=== PATIENT | male | born 1935 | race Caucasian/White ===

== ENCOUNTER 2021-07-13 07:53 | Outpatient (CLI) | payer MEDICARE | END 2021-07-13 07:54 | disposition home or self-care (01) | LOC: CT 07:53 | PROVIDERS: ATTEND Specialist | DX: S22.000A Wedge compression fracture of unspecified thoracic vertebra, initial encounter for closed fracture (principal) | CPT/HCPCS: 72128 ==

== ENCOUNTER 2021-07-20 12:48 | Inpatient (IN) | payer MEDICARE ==
[2021-07-20 13:58] LABS: #Eosinphils 0.2 thou/uL (0.0-0.7); #Monocytes 0.8 thou/uL (0.11-0.59); #Neutrophils 6.3 thou/uL (1.40-6.50); %Basophils 0.4 % (0.0-1.0); %Eosinophils 2.1 % (0.0-10.0); %Lymphocytes 12.3 % (21.0-51.0); %Monocytes 9.4 % (0.0-10.0); %Neutrophils 75.8 % (42.0-75.0); Hemoglobin 13.7 g/dL (14.0-18.0); Mean Corpuscular HGB CONC 31.9 g/dL (32.0-36.0); Mean Corpuscular Hemoglobin 36.4 pg (27.0-31.0); Platelet Count 157 thou/uL (130-400); RBC Distribution Width 13.7 % (11.5-14.5); Red Blood Cell (RBC) Count 3.76 mill/uL (4.70-6.10); White Blood Cell (WBC) Count 8.3 thou/uL (4.8-10.8)
[2021-07-20 14:29] LABS: ALT (SGPT) 21 U/L (8-55); AST (SGOT) 46 U/L (5-34); Albumin 4.1 g/dL (3.4-4.8); Alkaline Phosphatase 107 U/L (40-110); Anion Gap 21 mmol/L (10-20); BUN (Urea Nitrogen) 68 mg/dL (8.4-25.7); Bilirubin, Total 1.6 mg/dL (0.2-1.2); Calc. Creatinine Clearance 0 mL/min (70-130); Calcium 8.8 mg/dL (7.8-10.44); Carbon Dioxide 24 mmol/L (23-31); Chloride 98 mmol/L (98-107); Globulin 3.4 g/dL (2.4-3.5); Glucose 226 mg/dL (83-110); Potassium 4.8 mmol/L (3.5-5.1); Protein, Total 7.5 g/dL (5.8-8.1); Sodium 138 mmol/L (136-145)
[2021-07-20 14:45] LABS: CKMB 1.9 ng/mL (0-6.6)
[2021-07-20] MEDS ORDERED: Aspirin Chewable 81 MG TAB ONE (15:18)
[2021-07-20] MEDS ORDERED: Furosemide 20 MG/2 ML VIAL ONE (15:18)
[2021-07-20] MEDS ORDERED: Ondansetron ODT 4 MG TAB PO PRN (16:38)
[2021-07-20] MEDS ORDERED: HumaLOG 300 UNITS/3 ML VIAL SC PRN (17:22)
[2021-07-20] MEDS ORDERED: Dextrose 50% Abboject 50 ML SYRINGE SLOW IVP PRN (17:22)
[2021-07-20] MEDS ORDERED: Dextrose 5% in Water 1,000 ML IV PRN (17:22)
[2021-07-20 17:34] LABS: Magnesium 2.4 mg/dL (1.6-2.6); Phosphorus 4.4 mg/dL (2.3-4.7)
[2021-07-20] MEDS ORDERED: Furosemide 40 MG/4 ML VIAL SLOW IVP SCH (17:45)
[2021-07-20] MEDS ORDERED: Carvedilol 6.25 MG TAB PO SCH (18:30)
[2021-07-20 19:27] LABS: Hemoglobin A1c 8.7 % (4.0-6.0)
[2021-07-20 19:29] LABS: Troponin I 0.052 ng/mL (< 0.028)
[2021-07-20] MEDS: Apixaban 2.5 MG TAB PO SCH (20:49)
[2021-07-20] MEDS: Rosuvastatin 20 MG TAB PO SCH (20:49)
[2021-07-20] MEDS: Insulin Regular 300 UNITS/3 ML VIAL SC SCH (20:53)
[2021-07-20 22:44] LABS: SARS-CoV-2 PCR by NAA Not Detected (NotDetected)
[2021-07-20] MEDS: Acetaminophen 325 MG TAB PO PRN (23:16)
[2021-07-21 05:13] LABS: #Eosinphils 0.2 thou/uL (0.0-0.7); #Lymphocytes 1.1 thou/uL (1.20-3.40); #Monocytes 0.8 thou/uL (0.11-0.59); #Neutrophils 4.9 thou/uL (1.40-6.50); %Basophils 0.7 % (0.0-1.0); %Eosinophils 2.8 % (0.0-10.0); %Lymphocytes 16.1 % (21.0-51.0); %Monocytes 10.7 % (0.0-10.0); %Neutrophils 69.7 % (42.0-75.0); Hemoglobin 13.9 g/dL (14.0-18.0); Mean Corpuscular Hemoglobin 36.6 pg (27.0-31.0); Mean Platelet Volume 8.3 fL (7.4-10.4); Platelet Count 141 thou/uL (130-400); RBC Distribution Width 13.6 % (11.5-14.5)
[2021-07-21 05:33] LABS: ALT (SGPT) 15 U/L (8-55); AST (SGOT) 20 U/L (5-34); Alkaline Phosphatase 104 U/L (40-110); Anion Gap 17 mmol/L (10-20); BUN (Urea Nitrogen) 67 mg/dL (8.4-25.7); Bilirubin, Total 1.6 mg/dL (0.2-1.2); Calc. Creatinine Clearance 37 mL/min (70-130); Calcium 8.8 mg/dL (7.8-10.44); Carbon Dioxide 30 mmol/L (23-31); Chloride 100 mmol/L (98-107); Globulin 2.8 g/dL (2.4-3.5); Glucose 121 mg/dL (83-110); Potassium 3.8 mmol/L (3.5-5.1); Protein, Total 6.8 g/dL (5.8-8.1); Sodium 143 mmol/L (136-145)
[2021-07-21] MEDS: Levothyroxine Sodium 75 MCG TAB PO SCH (05:55)
[2021-07-21] MEDS: Furosemide 40 MG/4 ML VIAL SLOW IVP SCH ×2 (05:56→10:30)
[2021-07-21 08:49] LABS: Magnesium 2.4 mg/dL (1.6-2.6); Phosphorus 4.1 mg/dL (2.3-4.7)
[2021-07-21] MEDS: LEVOMEFOLATE PO SCH ×2 (10:27→20:42)
[2021-07-21] MEDS: B12 PO SCH ×2 (10:27→20:42)
[2021-07-21] MEDS: ALGAL OIL PO SCH ×2 (10:27→20:42)
[2021-07-21] MEDS: B6 PO SCH ×2 (10:27→20:42)
[2021-07-21] MEDS: Polyethylene Glycol 3350 17 GM Packet PO SCH (10:27)
[2021-07-21] MEDS: Famotidine 20 MG TAB PO SCH (10:28)
[2021-07-21] MEDS: Apixaban 2.5 MG TAB PO SCH ×2 (10:28→20:41)
[2021-07-21] MEDS: Docusate 100 MG CAP PO SCH ×2 (10:28→20:41)
[2021-07-21] MEDS: Tamsulosin HCl 0.4 MG CAP PO SCH (10:28)
[2021-07-21] MEDS: Aspirin 81 mg Enteric Coated Tablet PO SCH (10:29)
[2021-07-21] MEDS: Folic Acid 1 MG TAB PO SCH (10:29)
[2021-07-21] MEDS: Finasteride 5 MG TAB PO SCH (10:29)
[2021-07-21] MEDS: Magnesium Oxide 400 MG TAB PO SCH (10:29)
[2021-07-21] MEDS: Insulin Regular 300 UNITS/3 ML VIAL SC SCH ×2 (10:31→20:42)
[2021-07-21] MEDS: Carvedilol 6.25 MG TAB PO SCH ×2 (11:37→16:57)
[2021-07-21] MEDS: Fluticasone Propionate Nasal Spray 16 gm Bottle NASAL SCH (11:38)
[2021-07-21] MEDS: HumaLOG 300 UNITS/3 ML VIAL SC PRN (13:11)
[2021-07-21] MEDS: Rosuvastatin 20 MG TAB PO SCH (20:41)
[2021-07-22] MEDS: Furosemide 40 MG/4 ML VIAL SLOW IVP SCH ×2 (05:19→13:15)
[2021-07-22] MEDS: Levothyroxine Sodium 75 MCG TAB PO SCH (05:19)
[2021-07-22 05:31] LABS: #Eosinphils 0.2 thou/uL (0.0-0.7); #Monocytes 0.7 thou/uL (0.11-0.59); #Neutrophils 5.4 thou/uL (1.40-6.50); %Basophils 0.7 % (0.0-1.0); %Eosinophils 2.9 % (0.0-10.0); %Lymphocytes 14.1 % (21.0-51.0); %Monocytes 9.5 % (0.0-10.0); %Neutrophils 72.8 % (42.0-75.0); Hemoglobin 13.1 g/dL (14.0-18.0); Mean Corpuscular HGB CONC 32.6 g/dL (32.0-36.0); Mean Corpuscular Hemoglobin 37.2 pg (27.0-31.0); Mean Platelet Volume 8.2 fL (7.4-10.4); Platelet Count 138 thou/uL (130-400); RBC Distribution Width 13.6 % (11.5-14.5); Red Blood Cell (RBC) Count 3.53 mill/uL (4.70-6.10); White Blood Cell (WBC) Count 7.4 thou/uL (4.8-10.8)
[2021-07-22 05:58] LABS: ALT (SGPT) 15 U/L (8-55); AST (SGOT) 19 U/L (5-34); Albumin 3.8 g/dL (3.4-4.8); Alkaline Phosphatase 102 U/L (40-110); Anion Gap 17 mmol/L (10-20); BUN (Urea Nitrogen) 59 mg/dL (8.4-25.7); Calc. Creatinine Clearance 40 mL/min (70-130); Calcium 8.6 mg/dL (7.8-10.44); Carbon Dioxide 32 mmol/L (23-31); Chloride 100 mmol/L (98-107); Globulin 2.7 g/dL (2.4-3.5); Glucose 118 mg/dL (83-110); Magnesium 2.2 mg/dL (1.6-2.6); Phosphorus 3.7 mg/dL (2.3-4.7); Potassium 3.7 mmol/L (3.5-5.1); Protein, Total 6.5 g/dL (5.8-8.1); Sodium 145 mmol/L (136-145)
[2021-07-22] MEDS ORDERED: guaiFENesin ER 600 MG TAB PO SCH (09:15)
[2021-07-22] MEDS: B12 PO SCH ×2 (09:34→22:03)
[2021-07-22] MEDS: ALGAL OIL PO SCH ×2 (09:34→22:03)
[2021-07-22] MEDS: B6 PO SCH ×2 (09:34→22:03)
[2021-07-22] MEDS: LEVOMEFOLATE PO SCH ×2 (09:34→22:03)
[2021-07-22] MEDS: Polyethylene Glycol 3350 17 GM Packet PO SCH (09:35)
[2021-07-22] MEDS: Fluticasone Propionate Nasal Spray 16 gm Bottle NASAL SCH (09:35)
[2021-07-22] MEDS: Insulin Regular 300 UNITS/3 ML VIAL SC SCH ×2 (09:37→22:04)
[2021-07-22] MEDS: Folic Acid 1 MG TAB PO SCH (09:38)
[2021-07-22] MEDS: Carvedilol 6.25 MG TAB PO SCH ×2 (09:38→17:02)
[2021-07-22] MEDS: Docusate 100 MG CAP PO SCH ×2 (09:38→22:03)
[2021-07-22] MEDS: Finasteride 5 MG TAB PO SCH (09:38)
[2021-07-22] MEDS: Magnesium Oxide 400 MG TAB PO SCH (09:39)
[2021-07-22] MEDS: Apixaban 2.5 MG TAB PO SCH ×2 (09:39→22:03)
[2021-07-22] MEDS: Famotidine 20 MG TAB PO SCH (09:39)
[2021-07-22] MEDS: Tamsulosin HCl 0.4 MG CAP PO SCH (09:39)
[2021-07-22] MEDS: Aspirin 81 mg Enteric Coated Tablet PO SCH (09:39)
[2021-07-22] MEDS: Acetaminophen 325 MG TAB PO PRN ×3 (10:00→23:06)
[2021-07-22] MEDS: HumaLOG 300 UNITS/3 ML VIAL SC PRN (13:14)
[2021-07-22] MEDS: guaiFENesin ER 600 MG TAB PO SCH (22:03)
[2021-07-22] MEDS: Rosuvastatin 20 MG TAB PO SCH (22:03)
[2021-07-23] MEDS: hydrOXYzine 25 MG TAB PO PRN (01:47)
[2021-07-23] MEDS: Levothyroxine Sodium 75 MCG TAB PO SCH (05:56)
[2021-07-23] MEDS: Furosemide 40 MG/4 ML VIAL SLOW IVP SCH (05:56)
[2021-07-23 06:01] LABS: Anion Gap 19 mmol/L (10-20); BUN (Urea Nitrogen) 60 mg/dL (8.4-25.7); Calc. Creatinine Clearance 39 mL/min (70-130); Calcium 8.7 mg/dL (7.8-10.44); Carbon Dioxide 30 mmol/L (23-31); Chloride 100 mmol/L (98-107); Glucose 141 mg/dL (83-110); Potassium 4.2 mmol/L (3.5-5.1); Sodium 145 mmol/L (136-145)
[2021-07-23] MEDS: Insulin Regular 300 UNITS/3 ML VIAL SC SCH ×2 (07:42→21:07)
[2021-07-23] MEDS: Acetaminophen 325 MG TAB PO PRN (07:43)
[2021-07-23] MEDS: Carvedilol 6.25 MG TAB PO SCH ×2 (09:23→17:48)
[2021-07-23] MEDS: B6 PO SCH ×2 (09:23→21:04)
[2021-07-23] MEDS: LEVOMEFOLATE PO SCH ×2 (09:23→21:04)
[2021-07-23] MEDS: Fluticasone Propionate Nasal Spray 16 gm Bottle NASAL SCH (09:23)
[2021-07-23] MEDS: ALGAL OIL PO SCH ×2 (09:23→21:04)
[2021-07-23] MEDS: B12 PO SCH ×2 (09:23→21:04)
[2021-07-23] MEDS: Folic Acid 1 MG TAB PO SCH (09:24)
[2021-07-23] MEDS: Aspirin 81 mg Enteric Coated Tablet PO SCH (09:24)
[2021-07-23] MEDS: Tamsulosin HCl 0.4 MG CAP PO SCH (09:24)
[2021-07-23] MEDS: Finasteride 5 MG TAB PO SCH (09:24)
[2021-07-23] MEDS: Empagliflozin 10 MG TAB PO SCH (09:24)
[2021-07-23] MEDS: Magnesium Oxide 400 MG TAB PO SCH (09:24)
[2021-07-23] MEDS: guaiFENesin ER 600 MG TAB PO SCH ×2 (09:24→21:00)
[2021-07-23] MEDS: Apixaban 2.5 MG TAB PO SCH ×2 (09:24→21:01)
[2021-07-23] MEDS: Docusate 100 MG CAP PO SCH ×2 (09:24→21:01)
[2021-07-23] MEDS: Bumetanide 1 MG TAB PO SCH ×2 (09:25→21:01)
[2021-07-23] MEDS: Polyethylene Glycol 3350 17 GM Packet PO SCH (09:26)
[2021-07-23] MEDS: Famotidine 20 MG TAB PO SCH (09:26)
[2021-07-23] MEDS ORDERED: Furosemide 20 MG/2 ML VIAL SLOW IVP SCH (12:30)
[2021-07-23] MEDS: Albuterol Sulfate 2.5 mg/3 ml Neb NEB PRN (14:03)
[2021-07-23] MEDS: Rosuvastatin 20 MG TAB PO SCH (21:01)
[2021-07-24 05:41] LABS: Anion Gap 16 mmol/L (10-20); BUN (Urea Nitrogen) 53 mg/dL (8.4-25.7); Calc. Creatinine Clearance 42 mL/min (70-130); Calcium 8.7 mg/dL (7.8-10.44); Carbon Dioxide 32 mmol/L (23-31); Chloride 103 mmol/L (98-107); Glucose 70 mg/dL (83-110); Potassium 3.5 mmol/L (3.5-5.1); Sodium 147 mmol/L (136-145)
[2021-07-24 06:44] VITALS: BMI 34.4
[2021-07-24] MEDS: Levothyroxine Sodium 75 MCG TAB PO SCH (06:50)
[2021-07-24] MEDS: Insulin Regular 300 UNITS/3 ML VIAL SC SCH ×2 (08:42→22:11)
[2021-07-24] MEDS: Fluticasone Propionate Nasal Spray 16 gm Bottle NASAL SCH (08:42)
[2021-07-24] MEDS: Polyethylene Glycol 3350 17 GM Packet PO SCH (08:43)
[2021-07-24] MEDS: Finasteride 5 MG TAB PO SCH (08:44)
[2021-07-24] MEDS: Empagliflozin 10 MG TAB PO SCH (08:44)
[2021-07-24] MEDS: Famotidine 20 MG TAB PO SCH (08:44)
[2021-07-24] MEDS: Aspirin 81 mg Enteric Coated Tablet PO SCH (08:44)
[2021-07-24] MEDS: Magnesium Oxide 400 MG TAB PO SCH (08:44)
[2021-07-24] MEDS: Carvedilol 6.25 MG TAB PO SCH ×2 (08:44→17:38)
[2021-07-24] MEDS: guaiFENesin ER 600 MG TAB PO SCH ×2 (08:44→21:30)
[2021-07-24] MEDS: Folic Acid 1 MG TAB PO SCH (08:44)
[2021-07-24] MEDS: Tamsulosin HCl 0.4 MG CAP PO SCH (08:44)
[2021-07-24] MEDS: Docusate 100 MG CAP PO SCH ×2 (08:45→21:30)
[2021-07-24] MEDS: Apixaban 2.5 MG TAB PO SCH ×2 (08:45→21:30)
[2021-07-24] MEDS: Bumetanide 1 MG TAB PO SCH ×2 (08:45→21:32)
[2021-07-24] MEDS: B12 PO SCH ×2 (08:58→21:33)
[2021-07-24] MEDS: B6 PO SCH ×2 (08:58→21:33)
[2021-07-24] MEDS: ALGAL OIL PO SCH ×2 (08:58→21:33)
[2021-07-24] MEDS: LEVOMEFOLATE PO SCH ×2 (08:58→21:33)
[2021-07-24] MEDS: Albuterol Sulfate 2.5 mg/3 ml Neb NEB PRN (20:59)
[2021-07-24] MEDS: Rosuvastatin 20 MG TAB PO SCH (21:30)
[2021-07-24] MEDS: hydrOXYzine 25 MG TAB PO PRN (21:33)
[2021-07-25] MEDS: Levothyroxine Sodium 75 MCG TAB PO SCH (04:58)
[2021-07-25] MEDS ORDERED: Potassium Chloride 20 MEQ TAB PO SCH (09:00)
[2021-07-25] MEDS: Fluticasone Propionate Nasal Spray 16 gm Bottle NASAL SCH (09:00)
[2021-07-25] MEDS: Polyethylene Glycol 3350 17 GM Packet PO SCH (09:02)
[2021-07-25] MEDS: Empagliflozin 10 MG TAB PO SCH (09:03)
[2021-07-25] MEDS: Magnesium Oxide 400 MG TAB PO SCH (09:03)
[2021-07-25] MEDS: Docusate 100 MG CAP PO SCH ×2 (09:03→21:16)
[2021-07-25] MEDS: Apixaban 2.5 MG TAB PO SCH ×2 (09:03→21:17)
[2021-07-25] MEDS: Aspirin 81 mg Enteric Coated Tablet PO SCH (09:03)
[2021-07-25] MEDS: Bumetanide 1 MG TAB PO SCH ×2 (09:04→21:16)
[2021-07-25] MEDS: Tamsulosin HCl 0.4 MG CAP PO SCH (09:04)
[2021-07-25] MEDS: Carvedilol 6.25 MG TAB PO SCH ×2 (09:04→18:12)
[2021-07-25] MEDS: guaiFENesin ER 600 MG TAB PO SCH ×2 (09:04→21:17)
[2021-07-25] MEDS: Finasteride 5 MG TAB PO SCH (09:04)
[2021-07-25] MEDS: Famotidine 20 MG TAB PO SCH (09:04)
[2021-07-25] MEDS: Folic Acid 1 MG TAB PO SCH (09:04)
[2021-07-25] MEDS: Insulin Regular 300 UNITS/3 ML VIAL SC SCH ×3 (09:08→22:07)
[2021-07-25] MEDS: B12 PO SCH ×2 (09:09→21:20)
[2021-07-25] MEDS: ALGAL OIL PO SCH ×2 (09:09→21:20)
[2021-07-25] MEDS: LEVOMEFOLATE PO SCH ×2 (09:09→21:20)
[2021-07-25] MEDS: B6 PO SCH ×2 (09:09→21:20)
[2021-07-25] MEDS: Albuterol Sulfate 2.5 mg/3 ml Neb NEB PRN ×2 (09:21→14:50)
[2021-07-25 09:51] LABS: ALT (SGPT) 18 U/L (8-55); AST (SGOT) 26 U/L (5-34); Albumin 4.1 g/dL (3.4-4.8); Alkaline Phosphatase 124 U/L (40-110); Anion Gap 18 mmol/L (10-20); BUN (Urea Nitrogen) 53 mg/dL (8.4-25.7); Bilirubin, Total 1.8 mg/dL (0.2-1.2); Calc. Creatinine Clearance 37 mL/min (70-130); Calcium 9.1 mg/dL (7.8-10.44); Carbon Dioxide 33 mmol/L (23-31); Chloride 99 mmol/L (98-107); Globulin 3.1 g/dL (2.4-3.5); Glucose 135 mg/dL (83-110); Magnesium 2.6 mg/dL (1.6-2.6); Potassium 4.2 mmol/L (3.5-5.1); Protein, Total 7.2 g/dL (5.8-8.1); Sodium 146 mmol/L (136-145)
[2021-07-25] MEDS: Milrinone Lactate/D5W 20 MG in Premix Bag 1 BAG IV SCH ×3 (11:11→23:57)
[2021-07-25] MEDS ORDERED: Carvedilol 6.25 MG TAB PO SCH ×2 (18:30→21:00)
[2021-07-25] MEDS: Rosuvastatin 20 MG TAB PO SCH (21:16)
[2021-07-26] MEDS: Levothyroxine Sodium 75 MCG TAB PO SCH (06:07)
[2021-07-26 06:46] LABS: #Eosinphils 0.1 thou/uL (0.0-0.7); #Lymphocytes 0.8 thou/uL (1.20-3.40); #Monocytes 0.9 thou/uL (0.11-0.59); #Neutrophils 7.2 thou/uL (1.40-6.50); %Basophils 0.4 % (0.0-1.0); %Eosinophils 1.4 % (0.0-10.0); %Lymphocytes 8.4 % (21.0-51.0); %Monocytes 10.2 % (0.0-10.0); %Neutrophils 79.7 % (42.0-75.0); Hemoglobin 12.3 g/dL (14.0-18.0); Mean Corpuscular HGB CONC 33.1 g/dL (32.0-36.0); Mean Corpuscular Hemoglobin 37.5 pg (27.0-31.0); Mean Platelet Volume 8.3 fL (7.4-10.4); Platelet Count 127 thou/uL (130-400); RBC Distribution Width 13.4 % (11.5-14.5); Red Blood Cell (RBC) Count 3.27 mill/uL (4.70-6.10)
[2021-07-26] MEDS: Milrinone Lactate/D5W 20 MG in Premix Bag 1 BAG IV SCH ×2 (07:01→16:31)
[2021-07-26 07:06] LABS: Anion Gap 18 mmol/L (10-20); BUN (Urea Nitrogen) 46 mg/dL (8.4-25.7); Calc. Creatinine Clearance 36 mL/min (70-130); Calcium 8.3 mg/dL (7.8-10.44); Carbon Dioxide 28 mmol/L (23-31); Chloride 104 mmol/L (98-107); Glucose 138 mg/dL (83-110); Sodium 146 mmol/L (136-145)
[2021-07-26] MEDS ORDERED: Carvedilol 6.25 MG TAB PO SCH (09:00)
[2021-07-26] MEDS: Polyethylene Glycol 3350 17 GM Packet PO SCH (09:02)
[2021-07-26] MEDS: LEVOMEFOLATE PO SCH ×2 (09:02→21:25)
[2021-07-26] MEDS: ALGAL OIL PO SCH ×2 (09:02→21:25)
[2021-07-26] MEDS: B6 PO SCH ×2 (09:02→21:25)
[2021-07-26] MEDS: B12 PO SCH ×2 (09:02→21:25)
[2021-07-26] MEDS: Docusate 100 MG CAP PO SCH ×2 (09:03→21:22)
[2021-07-26] MEDS: Magnesium Oxide 400 MG TAB PO SCH (09:03)
[2021-07-26] MEDS: Famotidine 20 MG TAB PO SCH (09:03)
[2021-07-26] MEDS: Potassium Chloride 20 MEQ TAB PO SCH ×2 (09:03→21:23)
[2021-07-26] MEDS: Folic Acid 1 MG TAB PO SCH (09:03)
[2021-07-26] MEDS: Carvedilol 6.25 MG TAB PO SCH ×2 (09:03→16:31)
[2021-07-26] MEDS: Apixaban 2.5 MG TAB PO SCH (09:04)
[2021-07-26] MEDS: Aspirin 81 mg Enteric Coated Tablet PO SCH (09:04)
[2021-07-26] MEDS: Empagliflozin 10 MG TAB PO SCH (09:04)
[2021-07-26] MEDS: guaiFENesin ER 600 MG TAB PO SCH ×2 (09:04→21:22)
[2021-07-26] MEDS: Finasteride 5 MG TAB PO SCH (09:04)
[2021-07-26] MEDS: Insulin Regular 300 UNITS/3 ML VIAL SC SCH ×2 (09:05→21:22)
[2021-07-26] MEDS: Fluticasone Propionate Nasal Spray 16 gm Bottle NASAL SCH (09:05)
[2021-07-26] MEDS: HumaLOG 300 UNITS/3 ML VIAL SC PRN (11:56)
[2021-07-26] MEDS ORDERED: Furosemide 40 MG/4 ML VIAL SLOW IVP SCH (12:00)
[2021-07-26] MEDS ORDERED: ceFAZolin (BATCH) 2 GM in Premix Bag 1 BAG IVPB SCH (14:30)
[2021-07-26] MEDS: Rosuvastatin 20 MG TAB PO SCH (21:23)
[2021-07-27] MEDS: Levothyroxine Sodium 75 MCG TAB PO SCH (05:33)
[2021-07-27] MEDS: Carvedilol 6.25 MG TAB PO SCH (06:17)
[2021-07-27] MEDS ORDERED: Lidocaine 1% w/Epinephrine 1:100K 20 ML VIAL ONE (08:26)
[2021-07-27] MEDS ORDERED: Bupivacaine PF 0.5% 30 ML VIAL ONE (08:26)
[2021-07-27] MEDS ORDERED: Ketamine 50 MG/ML (10ML VIAL) ONE (08:28)
[2021-07-27] MEDS ORDERED: ceFAZolin (BATCH) 2 GM/100 ML BAG ONE ×2 (08:32→08:33)
[2021-07-27] MEDS: Polyethylene Glycol 3350 17 GM Packet PO SCH (10:12)
[2021-07-27] MEDS: Potassium Chloride 20 MEQ TAB PO SCH ×2 (10:12→21:25)
[2021-07-27] MEDS: Magnesium Oxide 400 MG TAB PO SCH (10:13)
[2021-07-27] MEDS: Aspirin 81 mg Enteric Coated Tablet PO SCH ×2 (10:13→10:16)
[2021-07-27] MEDS: LEVOMEFOLATE PO SCH ×2 (10:13→21:25)
[2021-07-27] MEDS: B6 PO SCH ×2 (10:13→21:25)
[2021-07-27] MEDS: ALGAL OIL PO SCH ×2 (10:13→21:25)
[2021-07-27] MEDS: Famotidine 20 MG TAB PO SCH (10:13)
[2021-07-27] MEDS: Folic Acid 1 MG TAB PO SCH (10:13)
[2021-07-27] MEDS: B12 PO SCH ×2 (10:13→21:25)
[2021-07-27] MEDS: Docusate 100 MG CAP PO SCH ×2 (10:13→21:24)
[2021-07-27] MEDS: Empagliflozin 10 MG TAB PO SCH (10:13)
[2021-07-27] MEDS: Fluticasone Propionate Nasal Spray 16 gm Bottle NASAL SCH (10:14)
[2021-07-27] MEDS: Insulin Regular 300 UNITS/3 ML VIAL SC SCH ×2 (10:14→21:24)
[2021-07-27] MEDS: Finasteride 5 MG TAB PO SCH (10:14)
[2021-07-27] MEDS: guaiFENesin ER 600 MG TAB PO SCH ×2 (10:15→21:24)
[2021-07-27] MEDS: Acetaminophen 325 MG TAB PO PRN (10:21)
[2021-07-27] MEDS: Milrinone Lactate/D5W 20 MG in Premix Bag 1 BAG IV SCH (10:25)
[2021-07-27 10:49] LABS: Anion Gap 19 mmol/L (10-20); BUN (Urea Nitrogen) 39 mg/dL (8.4-25.7); Calc. Creatinine Clearance 37 mL/min (70-130); Calcium 8.7 mg/dL (7.8-10.44); Carbon Dioxide 27 mmol/L (23-31); Chloride 105 mmol/L (98-107); Glucose 143 mg/dL (83-110); Potassium 4.1 mmol/L (3.5-5.1); Sodium 147 mmol/L (136-145)
[2021-07-27] MEDS ORDERED: Hydrochlorothiazide 25 MG TAB PO SCH (13:51)
[2021-07-27] MEDS ORDERED: Carvedilol 6.25 MG TAB PO SCH (17:00)
[2021-07-27] MEDS: Rosuvastatin 20 MG TAB PO SCH (21:25)
[2021-07-28 04:18] LABS: #Eosinphils 0.1 thou/uL (0.0-0.7); #Lymphocytes 0.7 thou/uL (1.20-3.40); #Monocytes 0.9 thou/uL (0.11-0.59); %Basophils 0.3 % (0.0-1.0); %Eosinophils 1.4 % (0.0-10.0); %Lymphocytes 7.5 % (21.0-51.0); %Monocytes 8.9 % (0.0-10.0); %Neutrophils 81.9 % (42.0-75.0); Hemoglobin 12.6 g/dL (14.0-18.0); Mean Corpuscular Hemoglobin 36.7 pg (27.0-31.0); Mean Platelet Volume 8.3 fL (7.4-10.4); Platelet Count 129 thou/uL (130-400); RBC Distribution Width 13.1 % (11.5-14.5); Red Blood Cell (RBC) Count 3.44 mill/uL (4.70-6.10); White Blood Cell (WBC) Count 9.7 thou/uL (4.8-10.8)
[2021-07-28 04:47] LABS: ALT (SGPT) 12 U/L (8-55); AST (SGOT) 28 U/L (5-34); Albumin 3.8 g/dL (3.4-4.8); Alkaline Phosphatase 108 U/L (40-110); Anion Gap 15 mmol/L (10-20); BUN (Urea Nitrogen) 38 mg/dL (8.4-25.7); Bilirubin, Total 1.8 mg/dL (0.2-1.2); Calc. Creatinine Clearance 40 mL/min (70-130); Calcium 8.6 mg/dL (7.8-10.44); Carbon Dioxide 28 mmol/L (23-31); Chloride 107 mmol/L (98-107); Globulin 3.1 g/dL (2.4-3.5); Glucose 79 mg/dL (83-110); Magnesium 2.7 mg/dL (1.6-2.6); Protein, Total 6.9 g/dL (5.8-8.1); Sodium 146 mmol/L (136-145)
[2021-07-28] MEDS: Milrinone Lactate/D5W 20 MG in Premix Bag 1 BAG IV SCH ×3 (06:05→23:42)
[2021-07-28] MEDS: Levothyroxine Sodium 75 MCG TAB PO SCH (06:06)
[2021-07-28] MEDS ORDERED: Potassium Chloride 20 MEQ TAB PO SCH (07:30)
[2021-07-28] MEDS ORDERED: Potassium Chloride 20 MEQ in Premix Bag 1 BAG IVPB SCH (07:30)
[2021-07-28] MEDS ORDERED: Hydrochlorothiazide 25 MG TAB PO SCH (09:00)
[2021-07-28] MEDS: Insulin Regular 300 UNITS/3 ML VIAL SC SCH ×2 (09:59→20:57)
[2021-07-28] MEDS: Famotidine 20 MG TAB PO SCH (10:00)
[2021-07-28] MEDS: B12 PO SCH ×2 (10:00→20:57)
[2021-07-28] MEDS: Folic Acid 1 MG TAB PO SCH (10:00)
[2021-07-28] MEDS: B6 PO SCH ×2 (10:00→20:57)
[2021-07-28] MEDS: LEVOMEFOLATE PO SCH ×2 (10:00→20:57)
[2021-07-28] MEDS: guaiFENesin ER 600 MG TAB PO SCH ×2 (10:00→20:57)
[2021-07-28] MEDS: Aspirin 81 mg Enteric Coated Tablet PO SCH (10:00)
[2021-07-28] MEDS: Spironolactone 25 MG TAB PO SCH (10:00)
[2021-07-28] MEDS: ALGAL OIL PO SCH ×2 (10:00→20:57)
[2021-07-28] MEDS: Potassium Chloride 20 MEQ TAB PO SCH ×2 (10:01→20:57)
[2021-07-28] MEDS: Amiodarone 200 MG TAB PO SCH ×2 (10:01→20:57)
[2021-07-28] MEDS: Docusate 100 MG CAP PO SCH ×2 (10:01→20:57)
[2021-07-28] MEDS: Magnesium Oxide 400 MG TAB PO SCH (10:01)
[2021-07-28] MEDS: Fluticasone Propionate Nasal Spray 16 gm Bottle NASAL SCH (10:02)
[2021-07-28] MEDS: Finasteride 5 MG TAB PO SCH (10:02)
[2021-07-28] MEDS: predniSONE 20 MG TAB PO SCH (10:02)
[2021-07-28] MEDS: Empagliflozin 10 MG TAB PO SCH (10:02)
[2021-07-28] MEDS: Polyethylene Glycol 3350 17 GM Packet PO SCH (10:03)
[2021-07-28 12:10] LABS: SARS-CoV-2 PCR by NAA Not Detected (NotDetected)
[2021-07-28] MEDS ORDERED: Apixaban 2.5 MG TAB PO SCH (18:00)
[2021-07-28] MEDS: Rosuvastatin 20 MG TAB PO SCH (20:57)
[2021-07-29 05:30] LABS: Anion Gap 13 mmol/L (10-20); BUN (Urea Nitrogen) 42 mg/dL (8.4-25.7); Calc. Creatinine Clearance 42 mL/min (70-130); Calcium 8.7 mg/dL (7.8-10.44); Carbon Dioxide 28 mmol/L (23-31); Chloride 107 mmol/L (98-107); Glucose 130 mg/dL (83-110); Magnesium 2.8 mg/dL (1.6-2.6); Potassium 4.4 mmol/L (3.5-5.1); Sodium 144 mmol/L (136-145)
[2021-07-29] MEDS: Levothyroxine Sodium 75 MCG TAB PO SCH (05:40)
[2021-07-29] MEDS: Milrinone Lactate/D5W 20 MG in Premix Bag 1 BAG IV SCH ×3 (08:25→23:43)
[2021-07-29] MEDS: Potassium Chloride 10 MEQ TAB PO SCH ×2 (08:28→21:01)
[2021-07-29] MEDS: Amiodarone 200 MG TAB PO SCH ×2 (08:28→21:01)
[2021-07-29] MEDS: Polyethylene Glycol 3350 17 GM Packet PO SCH (08:28)
[2021-07-29] MEDS: Empagliflozin 10 MG TAB PO SCH (08:30)
[2021-07-29] MEDS: predniSONE 20 MG TAB PO SCH (08:30)
[2021-07-29] MEDS: Magnesium Oxide 400 MG TAB PO SCH (08:30)
[2021-07-29] MEDS: guaiFENesin ER 600 MG TAB PO SCH ×2 (08:30→20:59)
[2021-07-29] MEDS: Docusate 100 MG CAP PO SCH ×2 (08:30→21:00)
[2021-07-29] MEDS: Folic Acid 1 MG TAB PO SCH (08:31)
[2021-07-29] MEDS: Aspirin 81 mg Enteric Coated Tablet PO SCH (08:31)
[2021-07-29] MEDS: Apixaban 2.5 MG TAB PO SCH ×2 (08:31→21:01)
[2021-07-29] MEDS: Finasteride 5 MG TAB PO SCH (08:31)
[2021-07-29] MEDS: Spironolactone 25 MG TAB PO SCH (08:31)
[2021-07-29] MEDS: Famotidine 20 MG TAB PO SCH (08:31)
[2021-07-29] MEDS: Fluticasone Propionate Nasal Spray 16 gm Bottle NASAL SCH (08:32)
[2021-07-29] MEDS: Insulin Regular 300 UNITS/3 ML VIAL SC SCH ×2 (08:32→21:02)
[2021-07-29] MEDS: ALGAL OIL PO SCH ×2 (08:33→20:59)
[2021-07-29] MEDS: LEVOMEFOLATE PO SCH ×2 (08:33→20:59)
[2021-07-29] MEDS: B6 PO SCH ×2 (08:33→20:59)
[2021-07-29] MEDS: B12 PO SCH ×2 (08:33→20:59)
[2021-07-29] MEDS: HumaLOG 300 UNITS/3 ML VIAL SC PRN (17:45)
[2021-07-29] MEDS: Rosuvastatin 20 MG TAB PO SCH (21:01)
[2021-07-30 04:07] LABS: #Lymphocytes 0.9 thou/uL (1.20-3.40); #Monocytes 0.8 thou/uL (0.11-0.59); #Neutrophils 9.6 thou/uL (1.40-6.50); %Basophils 0.1 % (0.0-1.0); %Eosinophils 0.1 % (0.0-10.0); %Lymphocytes 7.7 % (21.0-51.0); %Monocytes 7.3 % (0.0-10.0); %Neutrophils 84.8 % (42.0-75.0); Hemoglobin 11.8 g/dL (14.0-18.0); Mean Corpuscular HGB CONC 32.2 g/dL (32.0-36.0); Mean Corpuscular Hemoglobin 36.7 pg (27.0-31.0); Platelet Count 162 thou/uL (130-400); RBC Distribution Width 13.1 % (11.5-14.5); Red Blood Cell (RBC) Count 3.21 mill/uL (4.70-6.10); White Blood Cell (WBC) Count 11.3 thou/uL (4.8-10.8)
[2021-07-30 04:27] LABS: Anion Gap 12 mmol/L (10-20); BUN (Urea Nitrogen) 47 mg/dL (8.4-25.7); Calc. Creatinine Clearance 42 mL/min (70-130); Calcium 8.3 mg/dL (7.8-10.44); Carbon Dioxide 28 mmol/L (23-31); Chloride 107 mmol/L (98-107); Glucose 142 mg/dL (83-110); Magnesium 2.8 mg/dL (1.6-2.6); Potassium 4.4 mmol/L (3.5-5.1); Sodium 143 mmol/L (136-145)
[2021-07-30] MEDS: Levothyroxine Sodium 75 MCG TAB PO SCH (06:30)
[2021-07-30] MEDS: predniSONE 20 MG TAB PO SCH (07:57)
[2021-07-30] MEDS: Insulin Regular 300 UNITS/3 ML VIAL SC SCH ×2 (07:58→23:01)
[2021-07-30] MEDS: Spironolactone 25 MG TAB PO SCH (07:58)
[2021-07-30] MEDS ORDERED: Furosemide 20 MG/2 ML VIAL SLOW IVP SCH (08:15)
[2021-07-30] MEDS ORDERED: Torsemide 20 MG TAB PO SCH (08:30)
[2021-07-30] MEDS: Milrinone Lactate/D5W 20 MG in Premix Bag 1 BAG IV SCH ×2 (08:48→17:11)
[2021-07-30] MEDS: Polyethylene Glycol 3350 17 GM Packet PO SCH (08:49)
[2021-07-30] MEDS: Aspirin 81 mg Enteric Coated Tablet PO SCH (08:49)
[2021-07-30] MEDS: Docusate 100 MG CAP PO SCH ×2 (08:49→22:56)
[2021-07-30] MEDS: Potassium Chloride 10 MEQ TAB PO SCH ×2 (08:50→22:58)
[2021-07-30] MEDS: Folic Acid 1 MG TAB PO SCH (08:50)
[2021-07-30] MEDS: guaiFENesin ER 600 MG TAB PO SCH ×2 (08:50→22:58)
[2021-07-30] MEDS: Empagliflozin 10 MG TAB PO SCH (08:51)
[2021-07-30] MEDS: Apixaban 2.5 MG TAB PO SCH ×2 (08:51→22:57)
[2021-07-30] MEDS: Finasteride 5 MG TAB PO SCH (08:51)
[2021-07-30] MEDS: Colchicine 0.6 MG TAB PO SCH (08:51)
[2021-07-30] MEDS: Famotidine 20 MG TAB PO SCH (08:51)
[2021-07-30] MEDS: Amiodarone 200 MG TAB PO SCH ×2 (08:51→22:59)
[2021-07-30] MEDS: LEVOMEFOLATE PO SCH ×2 (08:52→23:00)
[2021-07-30] MEDS: B6 PO SCH ×2 (08:52→23:00)
[2021-07-30] MEDS: B12 PO SCH ×2 (08:52→23:00)
[2021-07-30] MEDS: ALGAL OIL PO SCH ×2 (08:52→23:00)
[2021-07-30] MEDS: Fluticasone Propionate Nasal Spray 16 gm Bottle NASAL SCH (12:03)
[2021-07-30] MEDS: HumaLOG 300 UNITS/3 ML VIAL SC PRN (18:33)
[2021-07-30] MEDS: Rosuvastatin 20 MG TAB PO SCH (22:56)
[2021-07-30] MEDS: Melatonin 3 MG TAB PO SCH (22:56)
[2021-07-31] MEDS: Milrinone Lactate/D5W 20 MG in Premix Bag 1 BAG IV SCH ×3 (01:43→21:14)
[2021-07-31] MEDS: Levothyroxine Sodium 75 MCG TAB PO SCH (05:14)
[2021-07-31 05:49] LABS: Anion Gap 14 mmol/L (10-20); BUN (Urea Nitrogen) 50 mg/dL (8.4-25.7); Calc. Creatinine Clearance 47 mL/min (70-130); Calcium 8.2 mg/dL (7.8-10.44); Carbon Dioxide 25 mmol/L (23-31); Chloride 106 mmol/L (98-107); Glucose 89 mg/dL (83-110); Magnesium 2.5 mg/dL (1.6-2.6); Potassium 4.2 mmol/L (3.5-5.1); Sodium 141 mmol/L (136-145)
[2021-07-31] MEDS ORDERED: Torsemide 20 MG TAB PO SCH (09:00)
[2021-07-31] MEDS: Aspirin 81 mg Enteric Coated Tablet PO SCH (11:35)
[2021-07-31] MEDS: Docusate 100 MG CAP PO SCH ×2 (11:35→21:19)
[2021-07-31] MEDS: Famotidine 20 MG TAB PO SCH (11:36)
[2021-07-31] MEDS: Potassium Chloride 10 MEQ TAB PO SCH ×2 (11:36→21:19)
[2021-07-31] MEDS: Finasteride 5 MG TAB PO SCH (11:36)
[2021-07-31] MEDS: Apixaban 2.5 MG TAB PO SCH ×2 (11:36→21:18)
[2021-07-31] MEDS: Empagliflozin 10 MG TAB PO SCH (11:36)
[2021-07-31] MEDS: Amiodarone 200 MG TAB PO SCH ×2 (11:36→21:18)
[2021-07-31] MEDS: guaiFENesin ER 600 MG TAB PO SCH ×2 (11:36→21:20)
[2021-07-31] MEDS: Furosemide 20 MG/2 ML VIAL SLOW IVP SCH (11:36)
[2021-07-31] MEDS: Spironolactone 25 MG TAB PO SCH (11:37)
[2021-07-31] MEDS: Polyethylene Glycol 3350 17 GM Packet PO SCH (11:37)
[2021-07-31] MEDS: Folic Acid 1 MG TAB PO SCH (11:37)
[2021-07-31] MEDS: B12 PO SCH ×2 (11:38→21:19)
[2021-07-31] MEDS: LEVOMEFOLATE PO SCH ×2 (11:38→21:19)
[2021-07-31] MEDS: Fluticasone Propionate Nasal Spray 16 gm Bottle NASAL SCH (11:38)
[2021-07-31] MEDS: ALGAL OIL PO SCH ×2 (11:38→21:19)
[2021-07-31] MEDS: B6 PO SCH ×2 (11:38→21:19)
[2021-07-31] MEDS: Colchicine 0.6 MG TAB PO SCH (11:39)
[2021-07-31] MEDS: Insulin Regular 300 UNITS/3 ML VIAL SC SCH ×2 (11:45→21:32)
[2021-07-31] MEDS: Rosuvastatin 20 MG TAB PO SCH (21:19)
[2021-07-31] MEDS: Melatonin 3 MG TAB PO SCH (21:20)
[2021-08-01] MEDS: Milrinone Lactate/D5W 20 MG in Premix Bag 1 BAG IV SCH (05:08)
[2021-08-01] MEDS: Levothyroxine Sodium 75 MCG TAB PO SCH (05:09)
[2021-08-01 05:57] LABS: Anion Gap 17 mmol/L (10-20); BUN (Urea Nitrogen) 55 mg/dL (8.4-25.7); Calc. Creatinine Clearance 38 mL/min (70-130); Calcium 8.4 mg/dL (7.8-10.44); Carbon Dioxide 24 mmol/L (23-31); Chloride 105 mmol/L (98-107); Glucose 156 mg/dL (83-110); Magnesium 2.3 mg/dL (1.6-2.6); Potassium 4.9 mmol/L (3.5-5.1); Sodium 141 mmol/L (136-145)
[2021-08-01] MEDS ORDERED: Bumetanide 1 MG TAB PO SCH (07:30)
[2021-08-01] MEDS: HumaLOG 300 UNITS/3 ML VIAL SC PRN (07:55)
[2021-08-01 08:43] VITALS: TEMP 98.5
[2021-08-01] MEDS: Famotidine 20 MG TAB PO SCH (08:45)
[2021-08-01] MEDS: Aspirin 81 mg Enteric Coated Tablet PO SCH (08:45)
[2021-08-01] MEDS: guaiFENesin ER 600 MG TAB PO SCH (08:46)
[2021-08-01] MEDS: Potassium Chloride 10 MEQ TAB PO SCH (08:46)
[2021-08-01] MEDS: Empagliflozin 10 MG TAB PO SCH (08:46)
[2021-08-01] MEDS: Amiodarone 200 MG TAB PO SCH (08:46)
[2021-08-01] MEDS: Colchicine 0.6 MG TAB PO SCH (08:46)
[2021-08-01] MEDS: Folic Acid 1 MG TAB PO SCH (08:46)
[2021-08-01] MEDS: Docusate 100 MG CAP PO SCH (08:46)
[2021-08-01] MEDS: ALGAL OIL PO SCH (08:47)
[2021-08-01] MEDS: Polyethylene Glycol 3350 17 GM Packet PO SCH (08:47)
[2021-08-01] MEDS: B12 PO SCH (08:47)
[2021-08-01] MEDS: LEVOMEFOLATE PO SCH (08:47)
[2021-08-01] MEDS: B6 PO SCH (08:47)
[2021-08-01] MEDS: Apixaban 2.5 MG TAB PO SCH (08:47)
[2021-08-01] MEDS: Finasteride 5 MG TAB PO SCH (08:50)
[2021-08-01] MEDS: Spironolactone 25 MG TAB PO SCH (08:50)
[2021-08-01] MEDS: Fluticasone Propionate Nasal Spray 16 gm Bottle NASAL SCH (08:51)
[2021-08-01] MEDS: Insulin Regular 300 UNITS/3 ML VIAL SC SCH (08:53)
[2021-08-01] MEDS: Furosemide 20 MG/2 ML VIAL SLOW IVP SCH (08:58)
[2021-08-01 16:19] VITALS: BP 95/55
[2021-08-02] MEDS ORDERED: Bumetanide 1 MG TAB PO SCH (09:00)
== END 2021-08-01 16:00 | disposition home or self-care (01) | DRG 291 ==
LOC: ERS 12:48 → INTOOBSV 16:44 → NEURO 16:44 → OBSVTOIN 07-21 12:14 → 2NO 07-25 19:56
PROVIDERS: ADMIT Student in an Organized Health Care Education/Training Program; ATTEND Student in an Organized Health Care Education/Training Program
PROC: 5A09357 Assistance with Respiratory Ventilation, Less than 24 Consecutive Hours, Continuous Positive Airway Pressure (ICD-10-PCS; 2021-07-25)
PROC: B548ZZA Ultrasonography of Superior Vena Cava, Guidance (ICD-10-PCS; principal; 2021-07-27)
PROC: 02HV33Z Insertion of Infusion Device into Superior Vena Cava, Percutaneous Approach (ICD-10-PCS; 2021-07-27)
PROC: B5181ZA Fluoroscopy of Superior Vena Cava using Low Osmolar Contrast, Guidance (ICD-10-PCS; 2021-07-27)
DX: I13.0 Hypertensive heart and chronic kidney disease with heart failure and stage 1 through stage 4 chronic kidney disease, or unspecified chronic kidney disease (principal); I50.23 Acute on chronic systolic (congestive) heart failure; J96.01 Acute respiratory failure with hypoxia; N17.9 Acute kidney failure, unspecified; I48.19 Other persistent atrial fibrillation; I47.2 Ventricular tachycardia; E87.0 Hyperosmolality and hypernatremia; I25.5 Ischemic cardiomyopathy; G47.33 Obstructive sleep apnea (adult) (pediatric); N18.9 Chronic kidney disease, unspecified; M19.90 Unspecified osteoarthritis, unspecified site; I25.10 Atherosclerotic heart disease of native coronary artery without angina pectoris; D46.9 Myelodysplastic syndrome, unspecified; Z66 Do not resuscitate; R33.9 Retention of urine, unspecified; E11.22 Type 2 diabetes mellitus with diabetic chronic kidney disease; E78.5 Hyperlipidemia, unspecified; K59.00 Constipation, unspecified; I08.8 Other rheumatic multiple valve diseases; F41.9 Anxiety disorder, unspecified; E03.9 Hypothyroidism, unspecified; M10.9 Gout, unspecified; K21.9 Gastro-esophageal reflux disease without esophagitis; E83.41 Hypermagnesemia; Z20.822 Contact with and (suspected) exposure to COVID-19; R79.89 Other specified abnormal findings of blood chemistry; E66.01 Morbid (severe) obesity due to excess calories; Z79.890 Hormone replacement therapy; Z88.2 Allergy status to sulfonamides; Z95.810 Presence of automatic (implantable) cardiac defibrillator; Z95.1 Presence of aortocoronary bypass graft; Z79.01 Long term (current) use of anticoagulants; Z79.4 Long term (current) use of insulin; Z79.82 Long term (current) use of aspirin; Z95.5 Presence of coronary angioplasty implant and graft; Z98.42 Cataract extraction status, left eye; Z98.41 Cataract extraction status, right eye; Z98.890 Other specified postprocedural states; Z82.49 Family history of ischemic heart disease and other diseases of the circulatory system; Z84.89 Family history of other specified conditions; Z99.81 Dependence on supplemental oxygen; I25.2 Old myocardial infarction; Z68.33 Body mass index [BMI] 33.0-33.9, adult; Z79.899 Other long term (current) drug therapy
CPT/HCPCS: 36415; 36416; 51702; 71045; 80048; 80053; 82248; 82553; 82607; 82746; 83036; 83615; 83735; 83880; 84100; 84436; 84439; 84443; 84484; 84550; 85025; 93005; 93306; 93798; 94640; 94760; 96374; 96376; C1751; G0378; J0690; J1642; J1815; J1940; J2260; J3480; J7512; J7611; S0020; U0003; U0005

== ENCOUNTER 2021-08-16 10:28 | Outpatient (CLI) | payer MEDICARE | END 2021-08-16 10:29 | disposition home or self-care (01) | LOC: NM 10:28 | PROVIDERS: ATTEND Specialist | DX: S22.009A Unspecified fracture of unspecified thoracic vertebra, initial encounter for closed fracture (principal) | CPT/HCPCS: 78306; A9503 ==

== ENCOUNTER 2021-09-27 15:06 | Outpatient (CLI) | payer MEDICARE | END 2021-09-27 15:07 | disposition home or self-care (01) | LOC: BICULT 15:06 | PROVIDERS: ATTEND Internal Medicine Nephrology | DX: N17.9 Acute kidney failure, unspecified (principal); N18.9 Chronic kidney disease, unspecified; N20.0 Calculus of kidney; R33.9 Retention of urine, unspecified; N28.1 Cyst of kidney, acquired | CPT/HCPCS: 76770 ==

== ENCOUNTER 2021-10-15 14:13 | Emergency (ER) | payer MEDICARE | END 2021-10-15 16:17 | disposition home or self-care (01) | LOC: ERS 14:13 | DX: T82.594A Other mechanical complication of infusion catheter, initial encounter (principal); I25.2 Old myocardial infarction; I48.91 Unspecified atrial fibrillation; E78.5 Hyperlipidemia, unspecified; I12.9 Hypertensive chronic kidney disease with stage 1 through stage 4 chronic kidney disease, or unspecified chronic kidney disease; E11.22 Type 2 diabetes mellitus with diabetic chronic kidney disease; N18.4 Chronic kidney disease, stage 4 (severe); Z79.899 Other long term (current) drug therapy; Z79.82 Long term (current) use of aspirin; Z79.01 Long term (current) use of anticoagulants; Z79.84 Long term (current) use of oral hypoglycemic drugs; Z79.4 Long term (current) use of insulin | CPT/HCPCS: 71045 ==

== ENCOUNTER 2022-02-07 13:46 | Outpatient (CLI) | payer MEDICARE | END 2022-02-07 13:47 | disposition home or self-care (01) | LOC: ULT 13:46 | PROVIDERS: ATTEND Internal Medicine | DX: I48.11 Longstanding persistent atrial fibrillation (principal); I50.40 Unspecified combined systolic (congestive) and diastolic (congestive) heart failure | CPT/HCPCS: 93306 ==

== ENCOUNTER 2022-02-23 09:23 | Outpatient (CLI) | payer MEDICARE | END 2022-02-23 09:24 | disposition home or self-care (01) | LOC: BICRAD 09:23 | PROVIDERS: ATTEND Family Medicine | DX: R05.9 Cough, unspecified (principal) | CPT/HCPCS: 71046 ==

== ENCOUNTER 2022-04-20 09:51 | Day surgery (SDC) | payer MEDICARE ==
[2022-04-19 11:01] VITALS: BMI 28.8
[2022-04-20] MEDS ORDERED: Ketamine 50 MG/ML (10ML VIAL) ONE (11:53)
== END 2022-04-20 14:00 | disposition home or self-care (01) ==
LOC: SDC 09:51
PROVIDERS: ATTEND Internal Medicine Cardiovascular Disease
PROC: B246ZZ4 Ultrasonography of Right and Left Heart, Transesophageal (ICD-10-PCS; principal; 2022-04-20)
PROC: 5A2204Z Restoration of Cardiac Rhythm, Single (ICD-10-PCS; 2022-04-20)
DX: I48.11 Longstanding persistent atrial fibrillation (principal); I08.8 Other rheumatic multiple valve diseases; I13.0 Hypertensive heart and chronic kidney disease with heart failure and stage 1 through stage 4 chronic kidney disease, or unspecified chronic kidney disease; N18.9 Chronic kidney disease, unspecified; I50.22 Chronic systolic (congestive) heart failure; I25.5 Ischemic cardiomyopathy; I70.0 Atherosclerosis of aorta; G47.33 Obstructive sleep apnea (adult) (pediatric); I44.30 Unspecified atrioventricular block; Z79.01 Long term (current) use of anticoagulants; Z79.82 Long term (current) use of aspirin; Z79.84 Long term (current) use of oral hypoglycemic drugs; Z79.890 Hormone replacement therapy; Z79.899 Other long term (current) drug therapy; Z88.2 Allergy status to sulfonamides; Z95.1 Presence of aortocoronary bypass graft; Z95.810 Presence of automatic (implantable) cardiac defibrillator
CPT/HCPCS: 92960; 93005; 93010; 93312

== ENCOUNTER 2022-05-02 14:51 | Outpatient (CLI) | payer MEDICARE | END 2022-05-02 14:52 | disposition home or self-care (01) | LOC: BICRAD 14:51 | PROVIDERS: ATTEND Family Medicine | DX: J18.9 Pneumonia, unspecified organism (principal) | CPT/HCPCS: 71046 ==

== ENCOUNTER 2022-06-13 13:05 | Outpatient (CLI) | payer MEDICARE | END 2022-06-13 13:06 | disposition home or self-care (01) | LOC: CT 13:05 | PROVIDERS: ATTEND Internal Medicine | DX: J01.11 Acute recurrent frontal sinusitis (principal); J32.1 Chronic frontal sinusitis; J32.0 Chronic maxillary sinusitis; J34.89 Other specified disorders of nose and nasal sinuses | CPT/HCPCS: 70486 ==

== ENCOUNTER 2022-07-06 15:40 | Emergency (ER) | payer MEDICARE ==
[2022-07-06 17:27] LABS: #Eosinphils 0.3 thou/uL (0.0-0.7); #Lymphocytes 1.1 thou/uL (1.20-3.40); #Monocytes 0.7 thou/uL (0.11-0.59); #Neutrophils 5.1 thou/uL (1.40-6.50); %Basophils 0.1 % (0.0-1.0); %Eosinophils 4.9 % (0.0-10.0); %Lymphocytes 15.3 % (21.0-51.0); %Monocytes 9.3 % (0.0-10.0); %Neutrophils 70.5 % (42.0-75.0); Hemoglobin 12.4 g/dL (14.0-18.0); Mean Corpuscular HGB CONC 33.6 g/dL (32.0-36.0); Mean Corpuscular Hemoglobin 35.6 pg (27.0-31.0); Mean Platelet Volume 7.7 fL (7.4-10.4); Platelet Count 139 10x3/uL (130-400); RBC Distribution Width 13.2 % (11.5-14.5); Red Blood Cell (RBC) Count 3.48 mill/uL (4.70-6.10); White Blood Cell (WBC) Count 7.2 10x3/uL (4.8-10.8)
[2022-07-06 17:45] LABS: ALT (SGPT) 18 U/L (8-55); AST (SGOT) 21 U/L (5-34); Alkaline Phosphatase 67 U/L (40-110); Anion Gap 14 mmol/L (10-20); BUN (Urea Nitrogen) 32 mg/dL (8.4-25.7); Bilirubin, Total 0.9 mg/dL (0.2-1.2); Calc. Creatinine Clearance 0 mL/min (70-130); Calcium 8.4 mg/dL (7.8-10.44); Carbon Dioxide 23 mmol/L (23-31); Chloride 106 mmol/L (98-107); Estimated GFR 35; Globulin 2.6 g/dL (2.4-3.5); Glucose 163 mg/dL (83-110); Potassium 3.8 mmol/L (3.5-5.1); Protein, Total 6.6 g/dL (5.8-8.1); Sodium 139 mmol/L (136-145)
== END 2022-07-06 18:09 | disposition home or self-care (01) ==
LOC: ERS 15:40
DX: I95.9 Hypotension, unspecified (principal); I48.91 Unspecified atrial fibrillation; I12.9 Hypertensive chronic kidney disease with stage 1 through stage 4 chronic kidney disease, or unspecified chronic kidney disease; E11.22 Type 2 diabetes mellitus with diabetic chronic kidney disease; N18.4 Chronic kidney disease, stage 4 (severe)
CPT/HCPCS: 36415; 80053; 85025; 87040; 93005

== ENCOUNTER 2023-03-29 06:00 | Day surgery (SDC) | payer MEDICARE ==
[2023-03-25 17:09] VITALS: BMI 25.7
[2023-03-29] MEDS ORDERED: EPINEPHrine 1 MG/ML VIAL ONE (13:14)
[2023-03-29] MEDS ORDERED: Bupivacaine 0.25% HCL 30 ML VIAL ONE (13:15)
[2023-03-29] MEDS ORDERED: Lidocaine 1% (PF) 30 ML VIAL ONE (13:15)
[2023-03-29] MEDS ORDERED: CEFAZOLIN 2 GM VIAL ONE (13:30)
[2023-03-29] MEDS ORDERED: Sodium Chloride 0.9% 100 ML ONE (13:30)
[2023-03-29] MEDS ORDERED: Ketamine In 0.9 % NaCl 50 MG/5 ML SYRINGE ONE (13:38)
[2023-03-29] MEDS ORDERED: Midazolam HCl 2 mg/2 ml Vial ONE (13:41)
== END 2023-03-29 15:46 | disposition home or self-care (01) ==
LOC: SDC 06:00
PROVIDERS: ATTEND Surgery
PROC: 02HV33Z Insertion of Infusion Device into Superior Vena Cava, Percutaneous Approach (ICD-10-PCS; principal; 2023-03-29)
DX: I50.23 Acute on chronic systolic (congestive) heart failure (principal); T82.41XA Breakdown (mechanical) of vascular dialysis catheter, initial encounter; M19.90 Unspecified osteoarthritis, unspecified site; E78.00 Pure hypercholesterolemia, unspecified; H40.9 Unspecified glaucoma; I11.0 Hypertensive heart disease with heart failure; G47.33 Obstructive sleep apnea (adult) (pediatric); E66.1 Drug-induced obesity; E66.01 Morbid (severe) obesity due to excess calories; Z68.26 Body mass index [BMI] 26.0-26.9, adult; Z98.890 Other specified postprocedural states; Z79.82 Long term (current) use of aspirin; Z79.899 Other long term (current) drug therapy; Z88.2 Allergy status to sulfonamides; Y83.1 Surgical operation with implant of artificial internal device as the cause of abnormal reaction of the patient, or of later complication, without mention of misadventure at the time of the procedure
CPT/HCPCS: 36558; 71045; 82962; C1751; J0171; 36416; J1642; J2001; J2250; J3490; S0020

== ENCOUNTER 2023-05-06 22:07 | Inpatient (IN) | payer MEDICARE ==
[2023-05-06] MEDS ORDERED: Ondansetron ODT 4 MG TAB PO PRN (23:15)
[2023-05-06] MEDS ORDERED: Glucagon 1 MG/ML KIT IM PRN (23:15)
[2023-05-06] MEDS ORDERED: Dextrose 50% Abboject 50 ML SYRINGE SLOW IVP PRN (23:15)
[2023-05-06] MEDS ORDERED: Dextrose 5% in Water 1,000 ML IV PRN (23:15)
[2023-05-07 00:01] VITALS: BMI 26.3
[2023-05-07] MEDS ORDERED: Nitroglycerin 0.4 MG TAB (25 Tab Bottle) SL PRN (00:10)
[2023-05-07] MEDS ORDERED: Docusate 100 MG CAP PO PRN (00:10)
[2023-05-07] MEDS ORDERED: Colchicine 0.6 MG TAB PO PRN (00:10)
[2023-05-07] MEDS ORDERED: traMADol HCl 50 MG TAB PO PRN (00:10)
[2023-05-07] MEDS ORDERED: Polyethylene Glycol 3350 17 GM Packet PO PRN (00:10)
[2023-05-07] MEDS ORDERED: Dulaglutide [Trulicity] 0.75 MG/0.5 ML Pen.Inj SC SCH (00:15)
[2023-05-07] MEDS ORDERED: Zolpidem Tartrate 5 MG TAB PO PRN (00:25)
[2023-05-07] MEDS ORDERED: guaiFENesin ER 600 MG TAB PO PRN (00:27)
[2023-05-07] MEDS ORDERED: Milrinone 20 MG in Sodium Chloride 0.9% 100 ML IVPB SCH (01:00)
[2023-05-07] MEDS ORDERED: Non-Formulary Item 1 EACH (Milrinone Lactate/D5w [Milrinone Lactate/D5w] 20 MG/100 ML Bag IV SCH (01:00)
[2023-05-07] MEDS: DEXTROSE IV SCH (01:41)
[2023-05-07] MEDS: [UNRECOGNIZED DRUG - OTHER] IV SCH (01:41)
[2023-05-07] MEDS: Milrinone Lactate/D5W 20 MG in Premix 1 BAG IV SCH (01:47)
[2023-05-07] MEDS: Ipratropium/Albuterol 3 ML NEB NEB SCH (02:19)
[2023-05-07 04:32] LABS: Anion Gap 16 mmol/L (10-20); BUN (Urea Nitrogen) 42 mg/dL (8.4-25.7); Calc. Creatinine Clearance 32 mL/min (70-130); Calcium 8.5 mg/dL (7.8-10.44); Carbon Dioxide 26 mmol/L (23-31); Chloride 104 mmol/L (98-107); Estimated GFR 33; Glucose 111 mg/dL (83-110); Potassium 3.7 mmol/L (3.5-5.1); Sodium 142 mmol/L (136-145)
[2023-05-07] MEDS: Levothyroxine Sodium 75 MCG TAB PO SCH (05:45)
[2023-05-07] MEDS: Fluticasone Propionate Nasal Spray 16 gm Bottle NASAL SCH (08:25)
[2023-05-07] MEDS: Empagliflozin 25 MG TAB PO SCH (08:26)
[2023-05-07] MEDS: Folic Acid 1 MG TAB PO SCH (08:26)
[2023-05-07] MEDS: Mometasone 100 MCG HFA INHALER (RT USE) INH SCH (08:26)
[2023-05-07] MEDS: Vit A,C & E/Lutein/Minerals Tablet PO SCH (08:26)
[2023-05-07] MEDS: Multivitamin W/ Minerals 1 TAB PO SCH (08:26)
[2023-05-07] MEDS: Magnesium Oxide 400 MG TAB PO SCH (08:26)
[2023-05-07] MEDS: Cholecalciferol 1,000 UNITS (25 MCG) TAB PO SCH (08:26)
[2023-05-07] MEDS: Loratadine 10 MG TAB PO SCH (08:27)
[2023-05-07] MEDS: Ascorbic Acid 500 mg Chewable Tablet PO SCH (08:27)
[2023-05-07] MEDS: Digoxin 0.125 MG TAB PO SCH (08:27)
[2023-05-07] MEDS: Famotidine 20 MG TAB PO SCH (08:27)
[2023-05-07] MEDS: Carvedilol 6.25 MG TAB PO SCH (08:27)
[2023-05-07] MEDS: Aspirin 81 mg Enteric Coated Tablet PO SCH (08:27)
[2023-05-07] MEDS: Rosuvastatin 20 MG TAB PO SCH (08:27)
[2023-05-07] MEDS ORDERED: ALGAL OIL PO SCH (09:00)
[2023-05-07] MEDS ORDERED: B6 PO SCH (09:00)
[2023-05-07] MEDS ORDERED: LEVOMEFOLATE PO SCH (09:00)
[2023-05-07] MEDS ORDERED: D MANNOSE 500 MG PO SCH (09:00)
[2023-05-07] MEDS ORDERED: B12 PO SCH (09:00)
[2023-05-07] MEDS: Saccharomyces boulardii 250 MG CAP PO SCH (10:42)
[2023-05-07] MEDS: Acetaminophen 325 MG TAB PO PRN (12:28)
[2023-05-07] MEDS: HumaLOG 300 UNITS/3 ML VIAL SC PRN ×2 (12:29→20:07)
[2023-05-07] MEDS: Melatonin 3 MG TAB PO SCH (20:02)
[2023-05-07] MEDS: Montelukast Sodium 10 mg Tablet PO SCH (20:03)
[2023-05-08] MEDS: Bumetanide 1 MG TAB PO SCH (10:30)
[2023-05-08] MEDS ORDERED: CEFAZOLIN 2 GM VIAL ONE (13:17)
[2023-05-08] MEDS ORDERED: Sodium Chloride 0.9% 100 ML ONE (13:17)
[2023-05-08] MEDS ORDERED: EPINEPHrine 1 MG/ML VIAL ONE (13:20)
[2023-05-08] MEDS ORDERED: Bupivacaine 0.25% HCL 30 ML VIAL ONE (13:20)
[2023-05-08] MEDS ORDERED: Lidocaine 2% PF 5 ML VIAL ONE (13:21)
[2023-05-08] MEDS ORDERED: Lidocaine 1% PF 5 ML VIAL ONE (13:27)
[2023-05-08] MEDS ORDERED: fentaNYL 50 mcg/mL 1 mL Vial ONE (13:27)
[2023-05-08] MEDS ORDERED: PROPOFOL 20 ML ONE (13:27)
[2023-05-08] MEDS ORDERED: Iopamidol 15 ML ONE (14:26)
[2023-05-08] MEDS ORDERED: Ondansetron PF 4 MG/2 ML Vial ONE (14:38)
[2023-05-08] MEDS ORDERED: PHENYLEPHRINE-NS 100 MCG/ML 10 ML SYRINGE ONE (14:38)
[2023-05-08] MEDS ORDERED: Ondansetron HCl/PF 4 MG/2 ML Vial IVP PRN (14:47)
[2023-05-08] MEDS ORDERED: Promethazine HCl 25 MG/ML VIAL IM PRN (14:47)
[2023-05-08 18:33] VITALS: BP 114/71; TEMP 98.1
== END 2023-05-08 20:36 | disposition home or self-care (01) | DRG 315 ==
LOC: 2NO 22:07 → OBSVTOIN 05-07 15:32
PROVIDERS: ADMIT Family Medicine; ATTEND Student in an Organized Health Care Education/Training Program
PROC: 5A09357 Assistance with Respiratory Ventilation, Less than 24 Consecutive Hours, Continuous Positive Airway Pressure (ICD-10-PCS; 2023-05-07)
PROC: 02HV33Z Insertion of Infusion Device into Superior Vena Cava, Percutaneous Approach (ICD-10-PCS; principal; 2023-05-08)
DX: T82.524A Displacement of infusion catheter, initial encounter (principal); I13.0 Hypertensive heart and chronic kidney disease with heart failure and stage 1 through stage 4 chronic kidney disease, or unspecified chronic kidney disease; I48.19 Other persistent atrial fibrillation; I50.22 Chronic systolic (congestive) heart failure; E11.22 Type 2 diabetes mellitus with diabetic chronic kidney disease; Z66 Do not resuscitate; N18.32 Chronic kidney disease, stage 3b; I25.10 Atherosclerotic heart disease of native coronary artery without angina pectoris; G47.33 Obstructive sleep apnea (adult) (pediatric); K21.9 Gastro-esophageal reflux disease without esophagitis; Z82.49 Family history of ischemic heart disease and other diseases of the circulatory system; Z79.01 Long term (current) use of anticoagulants; Z79.899 Other long term (current) drug therapy; Z79.82 Long term (current) use of aspirin; I25.5 Ischemic cardiomyopathy; Z88.2 Allergy status to sulfonamides; E78.00 Pure hypercholesterolemia, unspecified; I34.0 Nonrheumatic mitral (valve) insufficiency; M19.90 Unspecified osteoarthritis, unspecified site; J30.9 Allergic rhinitis, unspecified; G47.00 Insomnia, unspecified; Z95.1 Presence of aortocoronary bypass graft; Z95.5 Presence of coronary angioplasty implant and graft
CPT/HCPCS: 36415; 36416; 71045; 80048; 83735; 83880; 84443; 85025; 94640; C1751; G0378; J0171; J0665; J1642; J1815; J2001; J2260; J2405; J2704; J3010; J3490; J7620; Q9967

== ENCOUNTER 2023-08-02 10:48 | Day surgery (SDC) | payer MEDICARE ==
[2023-08-01 13:06] VITALS: BMI 25.7
[2023-08-02] MEDS ORDERED: Bupivacaine 0.25% HCL 30 ML VIAL ONE (12:39)
[2023-08-02] MEDS ORDERED: EPINEPHrine 1 MG/ML VIAL ONE (12:39)
[2023-08-02] MEDS ORDERED: Lidocaine 2% PF 5 ML VIAL ONE (12:40)
[2023-08-02] MEDS ORDERED: Iopamidol 15 ML ONE (12:40)
[2023-08-02] MEDS ORDERED: Lidocaine 1% (PF) 30 ML VIAL ONE (12:40)
[2023-08-02] MEDS ORDERED: Ketamine In 0.9 % NaCl 50 MG/5 ML SYRINGE ONE (12:49)
[2023-08-02] MEDS ORDERED: Midazolam HCl 2 mg/2 ml Vial ONE (12:51)
[2023-08-02] MEDS ORDERED: CEFAZOLIN 2 GM VIAL ONE (12:53)
[2023-08-02] MEDS ORDERED: fentaNYL 50 mcg/mL 1 mL Vial ONE (12:53)
[2023-08-02] MEDS ORDERED: Sodium Chloride 0.9% 100 ML ONE (12:54)
[2023-08-02] MEDS ORDERED: PHENYLEPHRINE-NS 100 MCG/ML 10 ML SYRINGE ONE (12:57)
== END 2023-08-02 15:08 | disposition home or self-care (01) ==
LOC: SDC 10:48
PROVIDERS: ATTEND Surgery
PROC: 0J2TXYZ Change Other Device in Trunk Subcutaneous Tissue and Fascia, External Approach (ICD-10-PCS; principal; 2023-08-02)
DX: I11.0 Hypertensive heart disease with heart failure (principal); I50.23 Acute on chronic systolic (congestive) heart failure; E78.00 Pure hypercholesterolemia, unspecified; E11.9 Type 2 diabetes mellitus without complications; K21.9 Gastro-esophageal reflux disease without esophagitis; G47.33 Obstructive sleep apnea (adult) (pediatric); E66.01 Morbid (severe) obesity due to excess calories; Z68.25 Body mass index [BMI] 25.0-25.9, adult; Z79.4 Long term (current) use of insulin; Z98.890 Other specified postprocedural states; Z98.49 Cataract extraction status, unspecified eye; Z95.810 Presence of automatic (implantable) cardiac defibrillator; Z88.2 Allergy status to sulfonamides; Z79.899 Other long term (current) drug therapy; Z91.014 Allergy to mammalian meats; Z79.82 Long term (current) use of aspirin
CPT/HCPCS: 36581; 71045; 82962; 93005; C1751; J0171; 36416; 93010; J0665; J1642; J2001; J2250; J3010; J3490; Q9967